=== PATIENT | male | born 1940 | race Asian ===

== ENCOUNTER 2022-02-08 07:58 | Emergency (ER) | payer OTHER ==
[~2022-02-08] VITALS: Ht 154.9 cm; Wt 53.6 kg
[2022-02-08] MEDS ORDERED: SODIUM CHLORIDE 0.9% 100 ML ONE (08:13)
[2022-02-08] MEDS ORDERED: IOHEXOL 350 MG/ML 75 ML VIAL ONE (08:13)
[2022-02-08] MEDS ORDERED: OXYGEN THERAPY IH SCH (08:15)
[2022-02-08 08:27] LABS: BASOPHILS % (AUTO) 0.7 % (0.0-2.0); HEMATOCRIT 39.8 % (41-53); HEMOGLOBIN 13.4 g/dL (13.5-17.5); LYMPHOCYTES % (AUTO) 27.8 % (22.0-44.0); MEAN CORPUSCULAR HEMOGLOBIN 29.8 pg (26.0-34.0); MEAN CORPUSCULAR HGB CONC 33.7 G/dL (31.0-37.0); MEAN CORPUSCULAR VOLUME 89 fL (80-100); MONOCYTES # (AUTO) 0.9 K/uL (0.1-1.0); MONOCYTES % (AUTO) 13.1 % (2.0-9.0); NEUTROPHILS # (AUTO) 3.9 K/uL (1.8-7.7); NEUTROPHILS % (AUTO) 55.4 % (40.0-70.0); PLATELET COUNT (AUTO) 322 K/uL (150-450); RED BLOOD CELL COUNT(AUTO) 4.49 MIL/uL (4.50-5.90); RED CELL DISTRIBUTION WIDTH 14.4 % (11.5-14.5)
[2022-02-08 08:37] LABS: CALCIUM, TOTAL 8.6 mg/dL (8.8-10.5); CREATININE 1.34 mg/dL (0.60-1.30); POTASSIUM 4.6 mmol/L (3.5-5.1)
[2022-02-08 08:42] LABS: ALBUMIN 3.2 g/dL (3.4-5.0); BILIRUBIN,TOTAL 0.6 mg/dL (0.1-1.0); TOTAL PROTEIN, SERUM 7.6 g/dL (6.4-8.2)
[2022-02-08 09:14] LABS: APPEARANCE,URINE CLEAR (CLEAR); BILIRUBIN,URINE NEGATIVE (NEGATIVE); GLUCOSE, URINE (UA) NEGATIVE (NEGATIVE); KETONES,URINE NEGATIVE (NEGATIVE); LEUKOCYTE ESTERASE ,URINE TRACE (NEGATIVE); NITRATE,URINE NEGATIVE (NEGATIVE); OCCULT BLOOD,URINE TRACE (NEGATIVE); PH,URINE 5.5 (5.0-8.0); PROTEIN,URINE NEGATIVE (NEGATIVE); SPECIFIC GRAVITIY, URINE 1.031 (1.003-1.030); UROBILINOGEN,URINE <=1.0 mg/dL (<=1.0)
[2022-02-08 09:15] VITALS: BP 142/64
[2022-02-08 09:22] LABS: COVID AG,FIA SOURCE NASOPHARYNGEAL
[2022-02-08 09:25] LABS: AMPHET/METH SCREEN,URINE NEGATIVE (NEGATIVE); BARBITURATE SCREEN, URINE NEGATIVE (NEGATIVE); BENZODIAZEPINES SCREEN,URINE NEGATIVE (NEGATIVE); CANNABINOID SCREEN,URINE NEGATIVE (NEGATIVE); COCAINE SCREEN,URINE NEGATIVE (NEGATIVE); METHADONE SCREEN, URINE NEGATIVE (NEGATIVE); OPIATE SCREEN,URINE NEGATIVE (NEGATIVE); PHENCYCLIDINE SCREEN,URINE NEGATIVE (NEGATIVE)
[2022-02-08 09:28] LABS: BACTERIA,URINE None Seen /HPF (None Seen); SQUAMOUS EPITHELIAL CELL,UR Few /LPF (None Seen); WBC,URINE 0-2 /HPF (0-5)
== END 2022-02-08 10:00 | disposition short-term general hospital (02) ==
LOC: EMS 08:00
DX: I63.9 Cerebral infarction, unspecified (principal); Z86.79 Personal history of other diseases of the circulatory system; Z20.822 Contact with and (suspected) exposure to COVID-19
CPT/HCPCS: 36415; 70450; 70496; 70498; 71045; 80053; 80307; 81001; 82962; 84484; 85025; 85730; 86850; 86900; 86901; 87426; 93005; 99291; 99292; J7050; Q9967; 82948

== ENCOUNTER 2022-04-06 16:38 | Emergency (ER) | payer OTHER ==
[~2022-04-06] VITALS: Ht 162.6 cm; Wt 40.9 kg
[2022-04-06 16:45] VITALS: BP 0/0
[2022-04-06] MEDS ORDERED: SODIUM CHLORIDE 0.9% 500 ML IV ONE (17:00)
[2022-04-06] MEDS ORDERED: FAMO20 PO (17:18)
[2022-04-06] MEDS ORDERED: INSU100V SQ (17:18)
[2022-04-06] MEDS ORDERED: ACET325S20 PR (17:18)
[2022-04-06] MEDS ORDERED: TERA1CAP53 PO (17:18)
[2022-04-06] MEDS ORDERED: VALS40TA4 PO (17:18)
[2022-04-06] MEDS ORDERED: APIX2.5T PO (17:18)
[2022-04-06] MEDS ORDERED: SENN-295 PO (17:18)
[2022-04-06] MEDS ORDERED: ATOR40TA28 PO (17:18)
[2022-04-06] MEDS ORDERED: PHEN16.233 PO (17:18)
== END 2022-04-06 21:51 ==
LOC: EMS 16:39
DX: R09.2 Respiratory arrest (principal); E11.9 Type 2 diabetes mellitus without complications; I10 Essential (primary) hypertension; Z87.440 Personal history of urinary (tract) infections
CPT/HCPCS: 99285